=== PATIENT | male | born 1970 ===

== ENCOUNTER 2021-10-10 16:34 | Emergency (ER) | payer OTHER ==
[~2021-10-10] VITALS: Ht 182.9 cm; Wt 95.3 kg
[2021-10-10] MEDS ORDERED: GLUMETZA500 MG (17:44)
[2021-10-10] MEDS ORDERED: GLIPIZIDE XL10 MG (17:44)
[2021-10-10] MEDS ORDERED: KETO10TA2 PO (22:11)
[2021-10-10] MEDS ORDERED: ORPHENADRINE C100 MG PO (22:11)
== END 2021-10-10 23:09 | disposition home or self-care (01) ==
LOC: ER 16:34
DX: M54.31 Sciatica, right side (principal); M62.830 Muscle spasm of back; E11.9 Type 2 diabetes mellitus without complications; Z79.84 Long term (current) use of oral hypoglycemic drugs